=== PATIENT | female | born 1950 | race African-American/Black ===

== ENCOUNTER 2021-10-21 11:17 | Outpatient (CLI) | payer MEDICARE, SELFPAY ==
--- NOTE | 2021-10-21 | EST_ITS ---
Patient Info Name: Lucila Alcaraz Age: 70 years : 1950 Gender: Female Ht: 55 in Wt: 185 lbs BSA: 1.86 m2 HR: 58 bpm BP: 144 / 81 mmHg Heart Rhythm: Sinus Rhythm Exam Date: 10/21/2021 12:14 PM Exam Location: [facility] Stress Patient Status: Outpatient Admit Date: 10/21/2021 Staff Ordering Physician: Kalpesh, Sebastián Heart MD Attending Provider: Kalpesh, Sebastián Heart MD Exercise Technologist: Josefa Britt CT Exercise Physician: Ángel Hernandez DO Exam Type: CA stress test treadmill w NM Study Info Indications Z01.810 - Encounter for preprocedural cardiovascular examination I10 - Essential (primary) hypertension A nuclear stress test was performed. Summary 1. 1. Negative Nitin exercise stress test for ischemic ST changes by ECG criteria. 2. 2. Good functional capacity, achieving 9 METs of workload. 3. 3. Appropriate HR response to exercise. 4. 4. Appropriate HR recovery at 1 minute post exercise. 5. 5. Baseline hypertension. 6. 6. Nuclear scan to follow and will be reported separately. Please correlate with it. 7. 7. Patient informed of the above results. Protocol: Nitin Stress ECG Details Stage: REST Duration (min): 1 min : 12 sec Speed (mph): 0.0 Grade (%): 0 HR (bpm): 59 SBP (mmHg): 144 DBP (mmHg): 81 METS: --- Stage: REST Duration (min): 7 min : 3 sec Speed (mph): 0.0 Grade (%): 0 HR (bpm): 63 SBP (mmHg): 144 DBP (mmHg): 81 METS: --- Stage: STAGE 1 Duration (min): 1 min : 0 sec Speed (mph): 1.7 Grade (%): 10 HR (bpm): 78 SBP (mmHg): 144 DBP (mmHg): 81 METS: --- Stage: STAGE 1 Duration (min): 2 min : 0 sec Speed (mph): 1.7 Grade (%): 10 HR (bpm): 79 SBP (mmHg): 144 DBP (mmHg): 81 METS: --- Stage: STAGE 1 Duration (min): 3 min : 0 sec Speed (mph): 1.7 Grade (%): 10 HR (bpm): 86 SBP (mmHg): 155 DBP (mmHg): 89 METS: --- Stage: STAGE 2 Duration (min): 1 min : 0 sec Speed (mph): 2.5 Grade (%): 12 HR (bpm): 98 SBP (mmHg): 155 DBP (mmHg): 89 METS: --- Stage: STAGE 2 Duration (min): 2 min : 0 sec Speed (mph): 2.5 Grade (%): 12 HR (bpm): 107 SBP (mmHg): 161 DBP (mmHg): 92 METS: --- Stage: STAGE 2 Duration (min): 3 min : 0 sec Speed (mph): 2.5 Grade (%): 12 HR (bpm): 113 SBP (mmHg): 161 DBP (mmHg): 92 METS: --- Stage: STAGE 3 Duration (min): 1 min : 0 sec Speed (mph): 3.4 Grade (%): 14 HR (bpm): 126 SBP (mmHg): 161 DBP (mmHg): 92 METS: --- Stage: STAGE 3 Duration (min): 1 min : 29 sec Speed (mph): 3.4 Grade (%): 14 HR (bpm): 132 SBP (mmHg): 161 DBP (mmHg): 92 METS: --- Stage: RECOVERY Duration (min): 0 min : 30 sec Speed (mph): 0.0 Grade (%): 0 HR (bpm): 130 SBP (mmHg): 161 DBP (mmHg): 92 METS: --- Stage: RECOVERY Duration (min): 1 min
--- NOTE | ~2021-10-21 | NM_ITS ---
EXAMINATION: NM stress w perf spect multi DATE: 10/21/2021 13:05 INDICATION: Abnormal electrocardiogram. TECHNIQUE: Rest images were obtained following intravenous administration of 9.1 mCi Tc99m tetrofosmi n ([place]). The patient performed an exercise activity. At peak exercise, 30.1 mCi Tc99m tetrofosmin (Myoview) was administered intravenously, and stress images were obtained. Data was reconstructed in to short axis and horizontal and vertical long axis SPECT images. Gated SPECT images were also obtain ed. COMPARISON: None. FINDINGS: There is no definite reversible or fixed perfusion abnormality to suggest ischemia or infar ction. There is no segmental wall motion abnormality. Left ventricular ejection fraction measures > 70%. IMPRESSION: 1. No definite ischemia or infarct. 2. Normal left ventricular ejection fraction measuring >70%. Reviewed, dictated and finalized at location B.
== END 2021-10-21 11:18 | disposition home or self-care (01) ==
PROVIDERS: PCP Family Medicine; Visit Provider Family Medicine
DX: N18.9 Chronic kidney disease, unspecified (principal); E11.9 Type 2 diabetes mellitus without complications; Z01.818 Encounter for other preprocedural examination; R94.31 Abnormal electrocardiogram [ECG] [EKG]
CPT/HCPCS: 78452; 93017; A9502

== ENCOUNTER 2022-09-22 11:49 | Outpatient (CLI) | payer MEDICARE, SELFPAY ==
--- NOTE | ~2022-09-22 | MM_ITS ---
EXAMINATION: MM screening patricia BI w jeannette HISTORY: Screening mammogram TECHNIQUE: Craniocaudal and mediolateral oblique 3-D tomosynthesis images were obtained and synthetic 2-D images were generated. CAD analysis was submitted and interpreted. COMPARISON: No prior mammogram is available for comparison at this institution. BREAST PARENCHYMAL COMPOSITION: There are scattered areas of fibroglandular density. FINDINGS: RIGHT BREAST: No suspicious mass, calcification, or architectural distortion are identified to sugges t malignancy. LEFT BREAST: There is focal asymmetry in the posterior third of the slightly upper breast. IMPRESSION: 1. Left breast focal asymmetry. 2. Additional mammographic views and possible breast ultrasound are recommended. BI-RADS Category 0: Incomplete: Needs additional imaging evaluation. Reviewed, dictated and finalized at location A. IMPRESSION: 1. Left breast focal asymmetry. 2. Additional mammographic views and possible breast ultrasound are recommended . BI-RADS Category 0: Incomplete: Needs additional imaging evaluation.
== END 2022-09-22 11:50 | disposition home or self-care (01) ==
PROVIDERS: PCP Family Medicine; Visit Provider Family Medicine
DX: Z12.31 Encounter for screening mammogram for malignant neoplasm of breast (principal); R92.8 Other abnormal and inconclusive findings on diagnostic imaging of breast
CPT/HCPCS: 77063; 77067

== ENCOUNTER → 2022-12-06 13:08 | Outpatient (CLI) | payer MEDICARE, SELFPAY ==
--- NOTE | ~2022-12-06 | DEXA_ITS ---
Bone Density Report Name: LEONARDO HAMILTON Age: 72 Sex: Female Ethnicity: White Date of : 1950 Indication: postmenopausal; screening for osteoporosis; height loss; seizure disorder; Referring Provider: JENN, KIRK Heart Study: Bone densitometry was performed. Exam Date: December 06, 2022 Accession number: [id number] Bone Density: Region BMD T-score Z-score Classification AP Spine (L1-L4) 1.134 0.8 3.0 Normal Femoral Neck (Left) 0.796 -0.5 1.4 Normal Total Hip (Left) 0.940 0.0 1.5 Normal Femoral Neck (Right) 0.747 -0.9 0.9 Normal Total Hip (Right) 0.902 -0.3 1.2 Normal Total Hip Mean 0.921 -0.2 1.4 Normal World Health Organization criteria for BMD impression classify patients as: Normal (T-score at or above -1.0), Osteopenia (T-score between -1.0 and -2.5), or Osteoporosis (T-score at or below -2.5). 10-year Fracture Risk: FRAX not reported because: All T-scores for Spine Total, Hip Total, Femoral Neck at or above -1.0 Clinical Information Provided by Patient: Has used the following medications: Vitamin D, MULTI VITAMIN Has the following medical conditions: Any Seizure Disorders Patient maximum height was 65 Menopause Age: 26 Drinks caffeinated beverages Onset of menses at age 17 Number of children 2 Impression: The patient has normal bone mass. Discussion: BONE DENSITY IS ABOVE THE MINIMUM DESIRABLE LEVEL AT ALL SKELETAL SITES TESTED. This patient?s bone mineral density is above the minimum desirable level (T-score -1.0 or better) at all sites measured. The patient should follow a healthful lifestyle (good nutrition with adequate calcium and vitamin D, and appropriate weight-bearing exercise). Follow-Up: Consider repeating this study in 5 years or sooner if there is some new clinical indication. Reported by: [facility] on 12/06/2022 1:28:00 PM. Reviewed, dictated and finalized at location AMarek DRIVER
== END ==
PROVIDERS: PCP Family Medicine; Visit Provider Family Medicine
DX: Z13.820 Encounter for screening for osteoporosis (principal); Z78.0 Asymptomatic menopausal state
CPT/HCPCS: 77080

== ENCOUNTER 2024-02-15 09:26 | Outpatient (CLI) | payer MEDICARE, SELFPAY ==
--- NOTE | ~2024-02-15 | MM_ITS ---
EXAMINATION: MM screening patricia BI w jeannette HISTORY: Screening mammogram TECHNIQUE: Craniocaudal and mediolateral oblique 3-D tomosynthesis images were obtained and synthetic 2-D images were generated. CAD analysis was submitted and interpreted. COMPARISON: 09/22/2022, 11/24/2020 BREAST PARENCHYMAL COMPOSITION:Not Dense. The breasts are almost entirely fatty FINDINGS: No suspicious mass, calcification, or architectural distortion are identified in either ted ast to suggest malignancy. There has been no suspicious interval change. IMPRESSION: No mammographic evidence of malignancy. Recommend routine screening mammography in one year. BI-RADS Category 1: Negative Reviewed, dictated and finalized at location .
== END 2024-02-15 09:27 | disposition home or self-care (01) ==
LOC: ANHIMG 09:30
PROVIDERS: PCP Family Medicine; Visit Provider Family Medicine
DX: Z12.31 Encounter for screening mammogram for malignant neoplasm of breast (principal)
CPT/HCPCS: 77063; 77067

== ENCOUNTER 2024-10-23 10:03 | Outpatient (CLI) | payer MEDICARE, SELFPAY ==
--- NOTE | ~2024-10-23 | MR_ITS ---
MRI of the right femur CLINICAL HISTORY: Pain TECHNIQUE: T1-weighted and STIR imaging was performed in the axial, coronal, and sagittal planes. FINDINGS: Bone marrow signals are unremarkable. No fracture or bone marrow edema. No evidence for ost eomyelitis or periosteal reaction. Probable moderate degenerative change of the patellofemoral compar tment of the knee. Visualized musculature in the right thigh is unremarkable. No muscle atrophy or edema identified. Vis ualized tendons are intact. No soft tissue mass or fluid collection seen. 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 No other significant findings in the right thigh. Reviewed, dictated and finalized at location .
--- NOTE | ~2024-10-23 | MR_ITS ---
MRI of the right hip Clinical history: Pain Technique: Coronal T1-weighted, T2-weighted, and proton-density fat-sat images, and axial T1-weighted and proton-density fat-sat images were acquired through the pelvis. Coronal T2-weighted images and c oronal, axial, and sagittal proton-density fat-sat images were acquired through the right hip. Findings: There is no fracture or avascular necrosis of either hip. Bone marrow signals the proximal femora and pelvic bones are unremarkable. Bilateral hip joint spaces are preserved with minimal diffu se chondromalacia. No significant joint effusion evident. No right acetabular labral tear identified. Visualized musculature about the pelvis and right hip is unremarkable. No muscle atrophy or edema see n. Visualized tendons are intact. No soft tissue mass or fluid collection seen peripherally. Large ce ntral presumed uterine fibroid present measuring up to 10.8 cm in diameter. IMPRESSION: No significant musculoskeletal abnormality at the right hip/pelvis. Large presumed central uterine fibroid measuring 10.8 cm with additional smaller fibroids present. Reviewed, dictated and finalized at location . IMPRESSION: No significant musculoskeletal abnormality at the right hip/pelvis. Large presumed central uterine fibroid measuring 10.8 cm with additional smalle r fibroids present.
== END 2024-10-23 10:04 | disposition home or self-care (01) ==
LOC: GOSHIMG 10:04
PROVIDERS: PCP Family Medicine; Visit Provider Nurse Practitioner
DX: M79.604 Pain in right leg (principal); M25.551 Pain in right hip; M76.899 Other specified enthesopathies of unspecified lower limb, excluding foot
CPT/HCPCS: 73718; 73721

== ENCOUNTER 2024-12-26 07:30 | Outpatient (RCR) | payer MEDICARE, SELFPAY ==
--- NOTE | 2024-11-26 08:28 | OPREHPOC ---
Outpatient Therapy Plan of Care This is a Multidisciplinary Plan of Care that may contain components documented by all disciplines (PT, OT, and ST.) PT Problem 1 PT Problem #1 Knowledge Deficit PT Goal 1 Goal / Goal Update Pt. to I with HEP. Target Visit 4 PT Problem 2 PT Problem #2 Pain PT Goal 1 Goal / Goal Update Pt to report pain <=3/10 for improved ADL tolerance. Target Visit 8 PT Problem 3 PT Problem #3 Impaired Strength PT Goal 1 Goal / Goal Update Pt to improve R LE strength >=4/5 for improved stability required for sit to stand rtansfers. Target Visit 8 PT Problem 4 PT Problem #4 Impaired Flexibility PT Goal 1 Goal / Goal Update Pt to improve R hamstring length during 90/90 testing to 30 degrees to restore mobility. Target Visit 8
--- NOTE | 2024-11-26 08:28 | PTOPEVAL1 ---
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 The pot broke and she immediately felt pain under her gluteal fold. She has been limping ever since. Received an Xray and MRI that were unremarkable. She can not get the pain to go away. She is unable to get in/ out of a chair, car, bed without putting all her weight on the opposite limb. She notes biofreeze and Tylenol only last 15-20 minutes before her pain comes back. She is now reporting the pain traveling along the outer side of her thigh to her knee joint. She reports difficulty with lower body dressing. She is unable to sleep on her R side anymore and is walking very slow for her 3 mile pace compared to her usual. Reported Pain Level Pain Score 6: Self Report Assessment PT Clinical Summary Pt is a 74 year old female that presents with signs and symptoms consistent with hamstring tendinosis. She has limitations in R hip and knee strength, pain, restrictions in R hamstring muscle length, difficulty with sit to stand transfers, and gait deficits that impair her ability tp perform ADLs and IADLs. The pt would benefit from skilled PY services to address the above listed impairments and facilitate a return to PLOF. HEP provided and performed, no adverse effects to exercise this date. Pt educated on importance to HEP adherence. Pt was also educated on anatomy and physiology, prognosis, PT POC, and home modalities. Plan of Care Interventions Aquatic Therapy,Electrical Stimulation,Gait Training,Hot Pack/Cold Pack,Intermittent Compression Pump,Manual Therapy,Neuro Re-education ,Therapeutic Activities,Therapeutic Exercise PT Services Indicated Yes Treatment Frequency and 2x/wk for 8 sessions Duration These treatments will address the objective and functional deficits as defined above. The patient will be advanced safely and appropriately in order for the patient to progress towards his/her prior level of function. Additional exercises will be introduced and as well as a comprehensive home exercise program upon discharge, if needed, ?to ensure carryover of functional gains achieved in the clinic. This treatment plan has been reviewed and agreement upon by the patient.
--- NOTE | 2024-12-26 08:00 | PTOPDC ---
Assessment and note entered by Martina Pierce, PT Evaluation Information Assessment Status Discharge Diagnosis Hamstring tendinosis of R leg ICD-10 Condition Codes (PT) Pain in right hip M25.551 Onset 1 month Subjective Information Overall, the pt reports feeling ready to be done with therapy. She has access to a bike and a treadmill at home. She feels comfortable with all of her exercises and stretches. She is pleased with her progress in therapy. Overall, she reports feeling 100% improvement since start therapy. She thinks her walking and transfer ability is much better. Reported Pain Level Pain Score 0: Self Report Assessment PT Clinical Summary Patient's condition has improved overall as evidenced by advancements in symptoms, mobility, strength, and overall functional use of the extremity. Pt has met all therapy goals and is pleased with progress made in PT. Patient to DC from PT this date and continue with updated HEP as instructed. Pt to contact PT or PCP if questions or concerns arise. Plan of Care PT Services Indicated Yes
== END 2024-12-26 12:02 | disposition home or self-care (01) ==
LOC: ANHPT 07:30
PROVIDERS: PCP Family Medicine; Visit Provider Nurse Practitioner
DX: M25.551 Pain in right hip (principal); M76.891 Other specified enthesopathies of right lower limb, excluding foot
CPT/HCPCS: 97110; 97140; 97161; 97530